=== PATIENT | male | born 1995 | race Caucasian/White ===

== ENCOUNTER 2023-02-04 18:59 | Emergency (ER) | payer OTHER ==
[~2023-02-04] VITALS: Ht 175.3 cm; Wt 95.0 kg
[2023-02-04 19:04] VITALS: O2SAT 97
[2023-02-04 19:38] LABS: HEMATOCRIT. 45.2 % (42.0-52.0); HEMOGLOBIN. 15.8 g/dL (14.0-18.0); MEAN CORPUSCULAR HEMOGLOBIN 31.6 pg (28.0-32.0); MEAN CORPUSCULAR VOLUME 90.5 fL (80.0-94.0); MEAN PLATELET VOLUME 8.2 fl (7.4-10.4); PLATELET 274 x1000/uL (130-400); RED BLOOD CELL COUNT 4.99 mill/uL (4.7-6.1); RED CELL DISTRIBUTION WIDTH 12.9 % (11.6-14.6)
[2023-02-04 19:46] LABS: CHLORIDE 110 mEq/L (98-107)
[2023-02-04] MEDS ORDERED: KETOROLAC 30MG/ML VIAL IV STA (21:34)
[2023-02-04] MEDS ORDERED: ONDANSETRON HCL 4MG/2ML INJ IV STA (21:34)
[2023-02-04 21:45] LABS: PLATELET ESTIMATE NORMAL
[2023-02-05] MEDS ORDERED: METOCLOPRAMIDE HCL 10MG/2ML VIAL IV ONE (00:30)
[2023-02-05] MEDS ORDERED: ONDA4TAB50 MT (03:13)
[2023-02-05 03:32] VITALS: BP 126/81; PULSE 91; RESP 17; TEMP 98.7
== END 2023-02-05 03:45 | disposition home or self-care (01) ==
LOC: ER 18:59
DX: R10.84 Generalized abdominal pain (principal); R11.2 Nausea with vomiting, unspecified; J45.909 Unspecified asthma, uncomplicated; Z68.30 Body mass index [BMI] 30.0-30.9, adult
CPT/HCPCS: 80053; 83690; 85025; 36415; 96374; 96375 ×2; 99285; 74176; J1885; J2405; Z7610; J2765